=== PATIENT | female | born 1965 | race Caucasian/White ===

== ENCOUNTER → 2016-07-11 | Outpatient (CLI) | payer OTHER ==
--- NOTE | 2016-07-11 19:37 | DX ---
Cervical Spine, Seven Views, With Flexion and Extension History: Pain and swelling after shoveling snow July 06. Comparison: Cervical spine July 07, 2013 and January 15, 2013. Findings: ACDF at C5-C6 is stable. No fracture is identified. There is stable mild variation in re trolisthesis of C4 on C5 with neutral, flexion, and extension positioning, most prominent with extens ion, where it measures approximately 3 mm. Trace retrolisthesis of C3 on C4 with extension is unchan ged. Mild vertebral and uncovertebral spondylosis at C3-C4 and C4-C5 and moderate vertebral and unco vertebral spondylosis at C6-C7 are stable to minimally increased. Severe right neural foraminal sten osis is present at C6-C7, with minimal left neural foraminal stenosis at C5-C6 and C6-C7. There is n o prevertebral soft tissue swelling. Impressions 1. No acute osseous findings. If pain persists and clinical suspicion warrants, consider CT. 2. Stable mild spondylolistheses, most prominent at C4-C5 with extension, which could be related to instability. 3. Severe right neural foraminal stenosis at C6-C7.
== END ==
LOC: CRFLAB 14:18
PROVIDERS: ATTEND Physical Medicine & Rehabilitation
DX: M54.2 Cervicalgia (principal); M99.41 Connective tissue stenosis of neural canal of cervical region
CPT/HCPCS: 72052-PO

== ENCOUNTER → 2016-07-19 | Outpatient (CLI) | payer OTHER ==
--- NOTE | 2016-07-19 16:49 | MR ---
MRI Cervical Spine (Without Contrast) History: Left arm paresthesias. M47.22. Anterior cervical fusion. Technique: Sagittal T1, T2, axial T2, and 3-D gradient echo MR sequences of the cervical spine, with out contrast. Findings: Anterior cervical fusion plate and screws at C5-C6. Normal cervical alignment, without sp ondylolisthesis. Cervical vertebral bodies are normal height, without compression fractures or spond ylolisthesis. Cerebellar tonsils are in normal position. Cervical spinal cord demonstrates normal signal, without cord edema or myelomalacia. C2-C3: No disk herniation or stenosis. C3-C4: Mild degenerative disk disease, with minimal dorsal disk/osteophyte complex, resulting in mil d central canal stenosis, without neural foraminal stenosis. C4-C5: Mild degenerative disk disease, with ventral osteophytes and right uncovertebral osteophyte, resulting in mild right neural foraminal stenosis, without central canal stenosis or left neural fora bridgett stenosis. C5-C6: Previous anterior cervical discectomy and fusion. No stenosis. C6-C7: Moderate degenerative disk disease, with dorsal disk/osteophyte complex, bilateral uncoverteb ral osteophytes, right greater than left, and mild bilateral facet arthropathy resulting in mild cent ral canal stenosis and moderate to severe bilateral neural foraminal stenosis, right worse than left. C7-T1: Moderate degenerative disk disease, with dorsal disk/osteophyte complex and bilateral uncover tebral osteophytes, with mild bilateral facet arthropathy, resulting in mild central canal stenosis a nd mild to moderate bilateral neural foraminal stenosis. Sagittal images from T1-T2 through T4-T5 demonstrate T3-T4 and T4-T5 moderate degenerative disk disea se, with dorsal disc/osteophyte complexes, resulting in mild central canal stenosis, without neural f oraminal stenosis or cord compression. Impressions 1. C5-C6: Anterior cervical diskectomy and fusion, without stenosis. 2. C6-C7: Mild central canal stenosis and moderate to severe bilateral neural foraminal stenosis se condary to moderate degenerative disk disease, with dorsal disk/osteophyte complex and bilateral unco vertebral osteophytes. 3. Please see above findings at specific disk levels.
== END ==
LOC: FIMAGING 08:29
PROVIDERS: ATTEND Neurological Surgery
DX: M50.323 Other cervical disc degeneration at C6-C7 level (principal); M50.33 Other cervical disc degeneration, cervicothoracic region; M99.71 Connective tissue and disc stenosis of intervertebral foramina of cervical region; M51.34 Other intervertebral disc degeneration, thoracic region; Z98.1 Arthrodesis status

== ENCOUNTER → 2016-09-26 | Outpatient (CLI) | payer OTHER | LOC: FIMAGING 15:14 | DX: Z12.31 Encounter for screening mammogram for malignant neoplasm of breast (principal); Z80.3 Family history of malignant neoplasm of breast | CPT/HCPCS: G0202 ==

== ENCOUNTER → 2017-04-21 | Outpatient (CLI) | payer OTHER | LOC: FIMAGING 07:56 | PROVIDERS: ATTEND Orthopaedic Surgery | DX: M25.572 Pain in left ankle and joints of left foot (principal); S93.402S Sprain of unspecified ligament of left ankle, sequela ==

== ENCOUNTER → 2017-07-12 | Outpatient (CLI) | payer OTHER | LOC: FIMAGING 10:46 | PROVIDERS: ATTEND Internal Medicine | DX: J40 Bronchitis, not specified as acute or chronic (principal); J45.901 Unspecified asthma with (acute) exacerbation; J01.90 Acute sinusitis, unspecified; J06.9 Acute upper respiratory infection, unspecified ==

== ENCOUNTER → 2017-10-05 | Outpatient (CLI) | payer OTHER | LOC: FIMAGING 11:11 | PROVIDERS: ATTEND Physician Assistant Surgical | DX: Z09 Encounter for follow-up examination after completed treatment for conditions other than malignant neoplasm (principal); Z98.1 Arthrodesis status; S13.150A Subluxation of C4/C5 cervical vertebrae, initial encounter; M50.123 Cervical disc disorder at C6-C7 level with radiculopathy; M50.13 Cervical disc disorder with radiculopathy, cervicothoracic region ==

== ENCOUNTER → 2017-10-31 | Outpatient (CLI) | payer OTHER | LOC: FIMAGING 15:20 | PROVIDERS: ATTEND Internal Medicine | DX: Z12.31 Encounter for screening mammogram for malignant neoplasm of breast (principal); Z80.3 Family history of malignant neoplasm of breast ==

== ENCOUNTER 2018-03-06 05:45 | Day surgery (SDC) | payer OTHER ==
--- NOTE | 2018-02-21 12:38 | GHP ---
[f rep st] PREOP HISTORY AND PHYSICAL DATE OF ADMISSION: 03/06/2018 DATE OF SURGERY: 03/06/2018. SURGERY TO BE PERFORMED: Laparoscopic bilateral salpingo-oophorectomy. Surgeon will be Dr. Pati bach. Ankle Patch Molder will be Dr. Vannesa Oakes. PREOPERATIVE DIAGNOSIS: Complex left ovarian mass and perimenopausal. HISTORY OF PRESENT ILLNESS: Zachery is a 53-year-old 4, para 2-0-2-2, who first presented in 2017 for an annual exam and she had had an episode of bleeding that was similar to her period a fter she had not had bleeding for over a year. Because of this episode of bleeding and concern about postmenopausal bleeding issues and possible abnormalities in her uterus, she underwent a pelvic ultr asound. The pelvic ultrasound revealed a thin endometrium which was 0.22 cm, no masses in the endome trium, but did reveal a left ovarian complex mass which had cystic and solid components, which was 4. 4 x 3.9 x 3.2 cm. At that time, she had no pain or symptoms regarding the adnexal mass, and her horm ones revealed that she was not completely menopausal, she still had estrogen and a normal FSH, and so we discussed expectant management. She underwent a followup ultrasound in January and the ultrasound revealed stability of the left ovarian complex mass, now 4.6 x 3.5 x 4.0 cm. She did have solid and complex areas, but demonstrated some increased vascularity and patient had developed some tenderness in the area that was obvious on ultrasound. She also did have multiple uterine fibroids, but a norm al endometrium. We discussed treatment options. Because the patient is becoming symptomatic and bec ause the ovarian mass looks abnormal, I recommended surgery for definitive diagnosis and treatment. Because patient is age 53 and is developing menopausal symptoms, starting on hormone replacement ther apy, we discussed the pros and cons of taking both ovaries for cancer prevention in her life and she is in agreement with this. She would like a bilateral salpingo-oophorectomy. PAST MEDICAL HISTORY: She has a history of gastroesophageal reflux disease, kidney stones. She does have occasional migraines, not for many years, and she has osteopenia diagnosed on the DEXA scan. PAST SURGICAL HISTORY: She had a left hip replacement in 2007, and that was when she was diagnosed w ith osteopenia and why she needed her replacement. In 2011, she had C5-C6 vertebrae fused, and in she had a laparoscopic appendectomy, and those are her only hospitalizations. PAST OBSTETRICAL HISTORY: In 1987, she had an elective termination D and C, no complications. In , she had a spontaneous miscarriage. In 1995, she had a vaginal delivery; had some episodes of pre term labor, but delivered at term, no complications. In 1997, she also had a vaginal delivery of a v iable female, no complications. PAST GYNECOLOGICAL HISTORY: She does have a history of abnormal Paps. In 1995, she underwent a LEEP and Paps have been negative since. Most recent Pap performed in October was negative; however, she is p ositive for high-risk HPV; negative for 16, 18, and 45; and is recommended to have a Pap in a year. Currently, she is using vasectomy as control. She has used oral contraceptive pills in the t, but they caused migraines. She has a history of herpes diagnosed in 2002. She has very rare outb reaks. She has normal mammograms and normal preventative maintenance. SOCIAL HISTORY: She is for many years and is in a monogamous relationship. 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 She denies tobacco. She has alcohol 2 times a month. No drug use. Normal caffeine use. Regular exercise. CURRENT MEDICATIONS: She uses acyclovir 400 mg b.i.d., Advair 2 a day, and scopolamine b.i.d. for ve rtigo. ALLERGIES: She is allergic to sulfa, it gives her a rash. No other allergies. FAMILY HISTORY: Her sister was diagnosed with breast cancer at age 47. Her sister has not undergone BRCA testing, but the patient has and she is negative. Her mother of renal cancer in her 80s a nd her father of sepsis related to a ruptured gallbladder. He was an alcoholic. No other signi ficant family history. SUBJECTIVE: VITAL SIGNS: Today, blood pressure is 110/60, weight is 120 pounds. GENERAL: She is a well-developed, well-nourished, white female in no acute distress. LUNGS: Clear to auscultation bi laterally. HEART: Regular rate and rhythm. No murmur. ABDOMEN: Soft, nontender, nondistended. P ELVIC: Normal external genitalia. Normal nulliparous cervix. The left ovary is tender to palpation and I appreciate a fullness in the left adnexa. No rebound or guarding. ASSESSMENT AND PLAN: Nvlpe-rhmz-[id number]-old 2, para 2-0-2-2, with a complex left ovarian mass a nd perimenopausal. Patient has been started on hormone replacement therapy and is doing well with he r vasomotor symptoms. She desires bilateral salpingo-oophorectomy for diagnosis and treatment, and c ancer prevention at a later time. She was consented for the procedure. She understood the risks and benefits. The risks including bleeding, infection; damage to organs, uterus, tubes, ovaries, bowel, bladder, nerves, blood vessels, ureters, need for open procedure, and need for additional procedures if a malignancy is documented. She understood these risks and benefits and agreed to proceed. /[id number]/MODL
[2018-03-06] MEDS ORDERED: ceFAZolin 2 GM/DEXTROSE 100 ML IV ONE (06:01)
[2018-03-06] MEDS ORDERED: LIDOCAINE 1% 2 ML INJ ID PRN (06:02)
[2018-03-06] MEDS ORDERED: LR 1,000 ML IV ONE (06:02)
[2018-03-06] MEDS ORDERED: BUPIVACAINE 0.5% 30 ML SDV ONE (06:50)
[2018-03-06] MEDS ORDERED: EPINEPHrine 1 MG/ML INJ ONE (06:50)
[2018-03-06] MEDS ORDERED: fentaNYL 100 MCG/2 ML INJ ONE ×2 (06:59→08:59)
[2018-03-06] MEDS ORDERED: PROPOFOL/EMULSION 500 MG/50 ML BOTTLE IV ONE (07:00)
[2018-03-06] MEDS ORDERED: PROPOFOL 200 MG/20 ML VIAL ONE (07:00)
--- NOTE | 2018-03-06 07:09 | PDANEPAE ---
ANE Past Medical History - Cardiovascular History Hx Hypertension: No Hx Arrhythmias: No Hx Chest Pain: No Hx Coronary Artery / Peripheral Vascular Disease: No Hx CHF / Valvular Disease: No Hx Palpitations: No - Pulmonary History Hx COPD: No Hx Asthma/Reactive Airway Disease: Yes Hx Recent Upper Respiratory Infection: No Hx Oxygen in Use at Home: No Hx Sleep Apnea: No Sleep Apnea Screening Result - Last Documented: Negative Pulmonary History Comment: instructed pt to bring inhaler to hospital - Neurologic History Hx Cerebrovascular Accident: No Hx Seizures: No Hx Dementia: No Neurologic History Comment: chronic vertigo. migraines. hx of cervical fusion - Endocrine History Hx Diabetes: No - Renal History Hx Renal Disorders: Yes Renal History Comment: chronic microscopic hematuria- has been worked up twice and they cannot find cause - Liver History Hx Hepatic Disorders: No - Neurological & Psychiatric Hx Hx Neurological and Psychiatric Disorders: No - Cancer History Hx Cancer: No - Congenital Disorder History Hx Congenital Disorders: No - GI History Hx Gastrointestinal Disorders: Yes Gastrointestinal History Comment: IBS- no issues currently. reflux- pepcid occ - Other Health History Other Health History: wears reading glasses. veneers to front two teeth - Chronic Pain History Chronic Pain: No - Surgical History Prior Surgeries: 01/30/12 appy with allison. left CRUZ with brynn 2007. c5- 6 fusion with VVC 2010 ANE Review of Systems Review of Systems: - Exercise capacity METS (RN): 4 METS ANE Patient History - Allergies Allergies/Adverse Reactions: Sulfa (Sulfonamide Antibiotics) Allergy (Verified 02/11/18 16:44) many years ago- woke up with pin point rash on trunk - Home Medications Home Medications: Acyclovir [Zovirax 400 mg (RX)] 01/31/12 [Last Taken 03/06/18 05:00] Cyproheptadine HCl [Periactin 4 MG (RX)] 01/31/12 [Last Taken 03/06/18 05:00] Advair 250/50 (*) 02/11/18 [Last Taken 03/06/18 05:00] Claritin PRN 02/11/18 [Last Taken 03/05/18] Herbals/Supplements -Info Only 02/11/18 [Last Taken 02/25/18] Pepcid PRN 02/11/18 [Last Taken 03/06/18 05:00] Proair Hfa 02/11/18 [Last Taken 03/06/18 06:25] SUMAtriptan 02/11/18 [Last Taken 03/05/18 18:00] - NPO status NPO Status: no food or drink >8 hours NPO Since - Liquids (Date): 03/05/18 NPO Since - Liquids (Time): 22:00 NPO Since - Solids (Date): 03/05/18 NPO Since - Solids (Time): 19:00 - Anes Hx Anes Hx: post operative nausea and vomiting - Smoking Hx Smoking Status: Former smoker - Family Anes Hx Family Hx Anesthesia Complications: none ANE Labs/Vital Signs - Vital Signs Blood Pressure: 115/88 Heart Rate: 84 Respiratory Rate: 16 O2 Sat (%): 98 Height: 157.48 cm Weight: 54.431 kg ANE Physical Exam - Airway Neck exam: decreased ROM Mallampati Score: Class 2 Mouth exam: normal dental/mouth exam - Pulmonary Pulmonary: no respiratory distress, no rales or rhonchi, clear to auscultation - Cardiovascular Cardiovascular: regular rate and rhythym, no murmur, rub, or gallop - ASA Status ASA Status: II ANE Anesthesia Plan Anesthesia Plan: general endotracheal anesthesia
[2018-03-06] MEDS ORDERED: ROCURONIUM 50 MG/5 ML VIAL ONE (07:19)
[2018-03-06] MEDS ORDERED: LIDOCAINE 2% 2 ML INJ ONE (07:19)
[2018-03-06] MEDS ORDERED: DEXAMETHASONE 4 MG/ML VIAL ONE ×2 (07:19)
[2018-03-06] MEDS ORDERED: ONDANSETRON 4 MG/2 ML VIAL ONE ×2 (07:19)
--- NOTE | 2018-03-06 07:23 | PDHPUP ---
History & Physical Update H&P update statement: This history and physical update is based on an assessment of the patient which was completed after admission or registration (within 24 hours), but prior to the surgery/procedure. H&P update: H&P reviewed & patient examined, no change in patient's condition since H&P completed
[2018-03-06] MEDS ORDERED: LR 500 ML IV PRN (08:10)
[2018-03-06] MEDS ORDERED: ONDANSETRON 4 MG/2 ML VIAL IVP PRN (08:10)
[2018-03-06] MEDS ORDERED: NALOXONE HCL 0.4 MG/ML INJ IVP PRN (08:10)
[2018-03-06] MEDS ORDERED: HYDROCODONE/APAP 5/325 TAB PO PRN (08:10)
[2018-03-06] MEDS ORDERED: ACETAMINOPHEN 500 MG TAB PO PRN (08:10)
[2018-03-06] MEDS ORDERED: oxyCODONE IR 5 MG TAB PO PRN (08:10)
[2018-03-06] MEDS ORDERED: ALBUTEROL 3 ML DEYVIAL IH PRN (08:10)
[2018-03-06] MEDS ORDERED: METOCLOPRAMIDE 10 MG/2 ML VIAL IVP PRN (08:10)
[2018-03-06] MEDS ORDERED: MEPERIDINE 25 MG/0.5 ML AMP IVP PRN (08:10)
[2018-03-06] MEDS ORDERED: SUGAMMADEX SODIUM 200 MG/2 ML VIAL IVP ONE (08:11)
[2018-03-06] MEDS ORDERED: IBUPROFEN 200 MG TAB PO PRN (08:42)
[2018-03-06] MEDS ORDERED: ONDANSETRON DISINTEGRATING 4 MG TAB PO PRN (08:42)
--- NOTE | 2018-03-06 08:44 | POSTOPPROG ---
Post Op Note Date of Operation: 03/06/18 Surgeon: Pati Ram Punchboard Stuffer: Vannesa Oakes DO Anesthesiologist: Marty Villafana MD Anesthesia: GET(General Endotracheal) Pre-op Diagnosis: complex L ovarian mass, post menopause Post-op Diagnosis: same Procedure: Laparoscopic BSO Findings: complex L ovarian mass Inf/Abcess present in the surg proc area at time of surgery?: No Depth: Organ Space EBL: Minimal Total fluids administered: 800 Complications: none Specimen(s): bilateral fallopian tubes and ovaries
[2018-03-06] MEDS: fentaNYL 100 MCG/2 ML INJ IVP PRN ×3 (09:00→09:40)
--- NOTE | 2018-03-06 09:17 | GOP ---
DATE OF OPERATION: 03/06/2018 SURGEON: Pati Ram MD ANESTHESIOLOGY MEDICAL DOCTOR: Vannesa Oakes DO. ANESTHESIA: General anesthesia. ANESTHESIOLOGIST: Marty Villafana MD. PREOPERATIVE DIAGNOSIS: Complex left ovarian mass in a postmenopausal female. POSTOPERATIVE DIAGNOSIS: Complex left ovarian mass in a postmenopausal female. PROCEDURE PERFORMED: Bilateral salpingo-oophorectomy. FINDINGS: ESTIMATED BLOOD LOSS: For the procedure, was less than 10 cc. INDICATIONS: The patient is a 53-year-old, 4, para 2-0-2-2, who presented in October of 2017 wit h an episode of postmenopausal bleeding. She underwent an ultrasound to evaluate her postmenopausal bleeding. The ultrasound revealed a thin endometrium, 0.22 cm, no masses, but did reveal a left ovar felicita mass, had cystic components, which was 4.4 x 3.9 x 3.2 cm. At that time, patient had no pain or symptoms regarding the adnexal mass. Hormones revealed that she was not completely menopausal. She had a normal FSH and estrogen. So, we discussed expectant management. She had a followup ultrasound in January which revealed stability of the complex ovarian mass, now 4.6 x 3.5 x 4.0 cm, did have mati id and complex areas, and some increased vascularity. Patient had developed some tenderness in that area, and it hurt on her ultrasound. She also had multiple uterine fibroids with a normal endometriu m. We discussed treatment options. Because the patient is becoming symptomatic and the mass is comp harlan in a postmenopausal female, we decided to perform a salpingo-oophorectomy. Because she is postme nopausal, she is developing symptoms and started on hormone replacement therapy, we decided to do it bilaterally. She understood the risks and benefits, the risks including bleeding, infection, damage to internal organs, uterus, tubes, ovaries, bowel, bladder, nerves, blood vessels, ureters, need for open procedure, need for additional procedures. She understood these risks and benefits, agreed to p roceed. DESCRIPTION OF PROCEDURE: The patient was taken to the operating room where she was placed under gen eral anesthesia without difficulty. She was prepped and draped in the dorsal lithotomy position, and a Aquino catheter was placed in her bladder. After adequate anesthesia was assured and a WHO time-ou t was performed, an open-sided speculum was placed in the vagina, and a single-tooth tenaculum was us ed to grasp the anterior lip of the cervix. An acorn uterine manipulator was then placed through selina t and attached to the tenaculum and allowed for uterine manipulation. Attention was then turned to the abdominal portion of the procedure, and after injection of Marcaine, a 5 mm skin incision was made in an infraumbilical skin fold, and an atraumatic trocar was placed un tamiko direct visualization in that port. Pneumoperitoneum was then created with carbon dioxide gas, an d the patient was placed in steep Trendelenburg. After injection of Marcaine and a 5 mm skin incisio n, a 5 mm atraumatic trocar was placed under direct visualization on the right, and a 10 mm trocar wa s placed on the left. Inspection revealed a uterus with small uterine fibroids and a large left ovarian mass. Normal tubes were seen bilaterally, and the right ovary was grossly normal. No other abnormalities were seen in the pelvis. The adnexa were then elevated and deviated medially, and we visualized the ureter in normal anatomica l location, peristalsing normally. The LigaSure was then used to dissect along the infundibulopelvic ligament and the utero-ovarian ligament, and the left ovary including the mass and the tube were dis sected off with the LigaSure without difficulty and placed in the posterior cul-de-sac. The right fa llopian tube and ovary were then deviated medially. We inspected and viewed the right ureter perista lsing normally, in normal anatomical location. The LigaSure was then used to dissect along the infun dibulopelvic ligament, utero-ovarian ligament, and the adnexal complex was removed directly. The rig ht tube and ovary were removed through the 10 mm port without difficulty. The ovarian mass and the l eft ovary and tube were placed in an Endo Catch bag and removed through the 10 mm port. We had to ex tend the incision a couple millimeters to remove it directly, and this was done without difficulty. Careful inspection revealed small areas of oozing along the pedicle, and these were cauterized with t he LigaSure, and good hemostasis was assured. There was minimal bleeding that was removed with the s uction frame nailer, and good hemostasis was observed along both pedicles. The liver and gallbladder were visualized direct without difficulty. The appendix was not able to be seen, but there were no areas of abnormality in the right lower quadrant. The pneumoperitoneum was allowed to escape. The fascial incision was closed with 0 Vicryl in a runni ng fashion. The skin was closed with 4-0 Monocryl, and the vaginal instruments were removed as well as the Aquino. The patient tolerated the procedure well. Sponge, lap, needle, and instrument counts were correct x2. The patient went to the recovery room in good condition. URINE OUTPUT: 100 cc. INTRAVENOUS FLUIDS: 1000 cc. /[id number]/MODL
--- NOTE | 2018-03-06 09:18 | POSTANESTH ---
Post Anesthetic Evaluation Cardiovascular Status: Normal, Stable, Similar to Pre-Op Cond Respiratory Status: Normal, Stable, Similar to Pre-op Cond. Level of Consciousness/Mental Status: Can Participate in Eval, Mildly Sleepy, Arousable Pain Control: Inadeq, Add Tx Required Nausea/Vomiting Control: Adequate, Prn Tx Ordered Complications Possibly Related to Anesthesia: None Noted
[2018-03-06] MEDS ORDERED: ACETAMINOPHEN 500 MG TAB ONE (10:23)
[2018-03-06 11:37] VITALS: BP 118/82
== END 2018-03-06 11:36 | disposition home or self-care (01) ==
LOC: FSGY 05:45
PROVIDERS: ATTEND Obstetrics & Gynecology
PROC: 0UT24ZZ Resection of Bilateral Ovaries, Percutaneous Endoscopic Approach (ICD-10-PCS; principal; 2018-03-06 07:15)
PROC: 0UT74ZZ Resection of Bilateral Fallopian Tubes, Percutaneous Endoscopic Approach (ICD-10-PCS; principal; 2018-03-06 07:15)
DX: D27.1 Benign neoplasm of left ovary (principal); D25.9 Leiomyoma of uterus, unspecified; N95.0 Postmenopausal bleeding
CPT/HCPCS: J0171; J0690; J1100; J1200; J2405; J2704; J3010

== ENCOUNTER → 2018-11-26 | Outpatient (CLI) | payer OTHER | LOC: FIMAGING 14:45 ==